=== PATIENT | male | born 2000 | race Hispanic/Latino ===

== ENCOUNTER 2020-04-22 00:33 | Emergency (ER) | payer SELFPAY ==
[~2020-04-22] VITALS: Ht 175.3 cm; Wt 88.9 kg
--- NOTE | 2020-04-22 00:57 | Emergency Department Note ---
History of Present Illnes History of Present Illness Chief Complaint: Neurological History of Present Illness This is a 19 year old male Chief Complaint Comment Patient states he passed out at about midnight and lost consciousness for about 30 seconds. Patient states he did smoke marijuana at about 2100 last night. Patient states when he woke up he was on the ground. 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 Any updates have been documented here. Past Medical History Recent Fever: No Clinical Suspicion of Infectio: No New/Unexplained Change in Ment: No Other Last Tetanus: +utd Review of Systems Review of Systems Constitutional: Reports as per HPI, Reports other (Syncope) EENTM: Reports no symptoms Cardiovascular: Reports no symptoms Respiratory: Reports no symptoms Gastrointestinal: Reports no symptoms Genitourinary: Reports no symptoms Musculoskeletal: Reports no symptoms Integumentary: Reports no symptoms Neurological: Reports no symptoms Psychological: Reports no symptoms Endocrine: Reports no symptoms Hematological/Lymphatic: Reports no symptoms Physical Exam Related Data Allergies: Coded Allergies: No Known Allergies (Unverified , 08/28/15) Triage Vital Signs Vital Signs Date Time Temp Pulse Resp B/P (MAP) Pulse Ox O2 Delivery O2 Flow Rate FiO2 04/22/20 00:47 74 20 127/69 100 Room Air Vital signs reviewed: Yes Physical Exam CONSTITUTIONAL Constitutional: Present well-developed, Present well-nourished HENT HENT: Present normocephalic, Present atraumatic, Present oropharynx clear/moist, Present nose normal HENT L/R: Present left ext ear normal, Present right ext ear normal EYES Eyes: Reports PERRL, Reports conjunctivae normal NECK Neck: Present ROM normal PULMONARY Pulmonary: Present effort normal, Present breath sounds normal CARDIOVASCULAR Cardiovascular: Present regular rhythm, Present heart sounds normal, Present capillary refill normal, Present normal rate GASTROINTESTINAL Abdominal: Present soft, Present nontender, Present bowel sounds normal GENITOURINARY Genitourinary: Present exam deferred SKIN Skin: Present warm, Present dry MUSCULOSKELETAL Musculoskeletal: Present ROM normal NEUROLOGICAL Neurological: Present alert, Present oriented x 3, Present no gross motor or sensory deficits; Absent cranial nerve deficit PSYCHOLOGICAL Psychological: Present mood/affect normal, Present judgement normal Procedures 12 Lead ECG Interpretation ECG Interpretation : Dresser Tender: Interpreted by ED physician Date: Apr 22, 2020 Rhythm: sinus rhythm Rate: normal QRS axis: normal ST segments normal: Yes T waves normal: Yes Clinical Impression: normal ECG Assessment & Plan Medical Decision Making MDM 19-year-old male presents for episode of syncope after smoking marijuana. He has never had this before. Initial differential includes adverse reaction to marijuana versus cardiac arrhythmia among others. Examination shows an overall well-appearing male in no acute distress, vital signs stable, within except for limits. No focal neurologic deficits, cranial nerves II-12 are intact. He otherwise feels at his baseline health at this time. EKG is well-appearing. Doubt emergent process at this time. I discussed results patient as well as expected disease time course and management. They will follow up with their primary care provider or return to the emergency department for new or worsening symptoms. Patient's appropriate for discharge. Part of this note was dictated with [employer] and is subject to recognition errors. Reassessment Reassessment time: 00:56 Reassessment Well appearing, NAD Assessment & Plan Final Impression: (1) Syncope Depart Disposition: HOME, SELF-CARE Last Vital Signs Date Time Temp Pulse Resp B/P (MAP) Pulse Ox O2 Delivery O2 Flow Rate FiO2 04/22/20 00:47 74 20 127/69 100 Room Air DAGOBERTO JIMENEZ MD Apr 22, 2020 00:57
[2020-04-22] MEDS ORDERED: FLUORESCEIN SOD(OPTH) 1 MG STRP OP ONE (01:00)
[2020-04-22 01:09] VITALS: BP 113/56
== END 2020-04-22 01:15 | disposition home or self-care (01) ==
LOC: ER 00:52
DX: R55 Syncope and collapse (principal); F17.210 Nicotine dependence, cigarettes, uncomplicated
CPT/HCPCS: 93005; 99282